=== PATIENT | male | born 1995 | race Caucasian/White ===

== ENCOUNTER 2017-10-10 14:38 | Emergency (ER) | payer OTHER ==
[~2017-10-10] VITALS: Ht 182.9 cm; Wt 142.9 kg
[2017-10-10 14:48] VITALS: BP 147/97
[2017-10-10] MEDS ORDERED: BACTRIM DS TAB1 EACH PO (14:51)
[2017-10-10] MEDS ORDERED: KEFLEX500 M1 PO (15:00)
== END 2017-10-10 15:12 | disposition left against medical advice (07) ==
LOC: M.ERS 14:38
DX: Z53.21 Procedure and treatment not carried out due to patient leaving prior to being seen by health care provider (principal)